=== PATIENT | female | born 1965 | race Two or more races ===

== ENCOUNTER 2020-09-04 01:06 | Emergency (ER) | payer OTHER ==
[~2020-09-04] VITALS: Ht 160 cm; Wt 74.8 kg
[2020-09-04] MEDS ORDERED: HYDROcodone-ACET 5/325MG TAB PO ONE (04:00)
[2020-09-04 05:00] VITALS: BP 107/73
== END 2020-09-04 06:11 | disposition home or self-care (01) ==
LOC: ER 01:06 → EDBD 01:06 → ER 06:11
DX: S52.572A Other intraarticular fracture of lower end of left radius, initial encounter for closed fracture (principal); S52.615A Nondisplaced fracture of left ulna styloid process, initial encounter for closed fracture; W18.00XA Striking against unspecified object with subsequent fall, initial encounter; Y93.89 Activity, other specified; Y92.89 Other specified places as the place of occurrence of the external cause; Y99.8 Other external cause status
CPT/HCPCS: 29125; 73100